=== PATIENT | female | born 1985 | race Caucasian/White ===

== ENCOUNTER → 2020-05-23 13:02 | Outpatient (CLI) | payer BC, SELFPAY ==
--- NOTE | ~2020-05-23 | MR_ITS ---
EXAMINATION: MR lumbar spine wo con DATE: 05/23/2020 13:52 INDICATION: Lumbar radiculopathy. TECHNIQUE: Magnetic resonance imaging (MRI) of the lumbar spine was performed without intravenous con trast. Sequences included sagittal T2-weighted FSE, sagittal T2-weighted FS FSE, sagittal T1-weighted FSE, and axial T2-weighted FSE. COMPARISON: None FINDINGS: Bone alignment is normal. Vertebral body are normal. There is mildly decreased disc height at L5-S1. The distal spinal cord signal intensity is normal. The conus medullaris is at L2. The follo wing disc levels are specifically discussed: L1-L2: The disc does not extend beyond the endplate margin. There is mild right facet joint osteoarth ritis. There is no neural foraminal stenosis. There is no central canal stenosis. L2-L3: The disc does not extend beyond the endplate margin. There is mild bilateral facet joint osteo arthritis. There is no neural foraminal stenosis. There is no central canal stenosis. L3-L4: The disc does not extend beyond the endplate margin. There is no facet joint osteoarthritis. T here is no neural foraminal stenosis. There is no central canal stenosis. L4-L5: The disc is bulging. There is mild bilateral facet joint osteoarthritis. There is mild left ne ural foraminal stenosis. There is mild central canal stenosis. L5-S1: The disc is bulging and has an annular fissure. There is no facet joint osteoarthritis. There is mild bilateral neural foraminal stenosis. There is no central canal stenosis. IMPRESSION: 1. Mild lumbar spondylosis. Reviewed, dictated and finalized at location A. IMPRESSION: 1. Mild lumbar spondylosis.
== END ==
PROVIDERS: Visit Provider Orthopaedic Surgery
DX: M47.26 Other spondylosis with radiculopathy, lumbar region (principal)
CPT/HCPCS: 72148